=== PATIENT | female | born 1990 | race Caucasian/White ===

== ENCOUNTER 2024-11-04 08:02 | Outpatient (REF) | payer OTHER, SELFPAY ==
[2024-11-04 11:45] LABS: Hematocrit 39.6 % (37.0-47.0); Hemoglobin 12.8 g/dl (12.0-16.0); Mean Corpuscular HGB Conc 32.3 g/dl (31.0-35.0); Mean Corpuscular Hemoglobin 27.2 pg (27.0-33.0); Mean Corpuscular Volume 84.3 fL (80.0-98.0); NRBC Abs Auto 0.000 X10*3/uL (0.0-0.012); NRBC Pct Auto 0.0 /100WBC (0.0-0.2); Platelet Count 221 X10*3/uL (160-400); Red Blood Count 4.70 X10*6/uL (4.20-5.50); White Blood Count 5.5 X10*3/uL (4.8-10.8)
[2024-11-04 12:08] LABS: Alanine Aminotransferase 11 U/L (0-31); Albumin Level 4.3 g/dL (3.5-5.0); Alkaline Phosphatase 45 U/L (39-117); Amylase 88 U/L (28-100); Anion Gap 10 (12-20); Aspartate Amino Transferase 17 U/L (5-31); Blood Urea Nitrogen 15 mg/dL (9-16); Calcium 9.2 mg/dL (8.4-10.2); Carbon Dioxide 26 mmol/L (22-29); Chloride 109 mmol/L (96-108); Cholesterol 170 mg/dL (<200); Estimated Glomerular Filt Rate > 60; HDL Cholesterol 67 mg/dL (>40); Lipase 21 U/L (8-78); Potassium 3.9 mmol/L (3.3-5.1); Sodium 141 mmol/L (135-145); Total Protein 6.9 g/dL (6.5-8.0); Triglycerides 49 mg/dL (<150)
[2024-11-04 12:39] LABS: Folate 9.2 ng/mL (> or = 4.0); Vitamin B12 685 pg/mL (200-900)
== END 2024-11-04 08:03 | disposition home or self-care (01) ==
LOC: HO.WFDLDS 08:02
PROVIDERS: PCP Nurse Practitioner Family; Visit Provider Nurse Practitioner Family
DX: Z00.00 Encounter for general adult medical examination without abnormal findings (principal); R10.11 Right upper quadrant pain; Z12.83 Encounter for screening for malignant neoplasm of skin; Z28.21 Immunization not carried out because of patient refusal; Z86.79 Personal history of other diseases of the circulatory system; Z87.59 Personal history of other complications of pregnancy, childbirth and the puerperium; Z86.32 Personal history of gestational diabetes; Z83.3 Family history of diabetes mellitus
CPT/HCPCS: 36415; 80053; 80061; 82043; 82150; 82248; 82306; 82570; 82607; 82746; 83036; 83690; 84443; 85027; 96127

== ENCOUNTER 2024-11-04 08:02 | Outpatient (AMB) | payer OTHER, SELFPAY ==
--- NOTE | 2024-11-04 08:05 | A.OFFPC_ITS ---
Vital Signs 11/04/24 08:11 Height 5 ft 2 in Weight 128 lb BMI 23.4 BP 98/66 Blood Pressure Location Lt brachial Position Sitting Respiration 12 Pulse 69 Pulse Source Pulse Oximeter Temp 97.2 F Temp Source Oral Pulse Oximetry (%) 98 Oxygen Delivery Method Room Air Intake Visit Reasons: Dermatology referral Intake Note: New patient to establish care and patient requesting dermatology referral. Patient needs lab work. 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 Allergies No Known Allergies Allergy (Verified 11/04/24 08:14) Medication List - Last Reconciled 11/04/24 [facility] No Known Home Meds Tobacco use date assessed: 11/04/24 Dental Screening Dental Screen Date: 11/04/24 Did you have a dental visit in the last 12 months?: Yes Did you have a dental problem in the last 6 months where you did not have access to dental care?: No Was dental information given to patient?: Patient has dentist HPI HPI Comments History of Present Illness Details 34 y/o F with R breast cyst, seasonal al lergies, fhx DM (dad), Social: , 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 Has 2 daughters (2019, 2021). Surgery: Multiple bx R breast - reports benign. Appy. [place] teeth. Fhx: No fhx breast ca; Dad with DM s/p whipple; Mom alive and well. Sister alive and well. Kids alive and well. 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 Worse in RUQ. - Present for months, accompanied by let hargy and reduced appetite. Right Breast Cyst: - Right breast cyst with past biopsies, change in size, no current malignancy. - Managed by ObGyn Moles with Halos: - Moles with halos, no history of skin c ancer, family history of mole removals. - would like referral to saul haddad History of Appendectomy: - Appendectomy performed 10-15 years ago due to abdominal pain. Seasonal Allergies: - Mild seasonal allergies, unimposing, m anaged without medication. Gestational Diabetes in Prior : - Occurred during first , resol sundeep . Pre-eclampsia in Prior : - Manifested after second , res olved . Family History of Diabetes: - Father insulin-dependent post-whipple procedure for pancreatic cyst (nonmalignant) Health Maintenance - Last Tdap vaccination during 2021 preg topher. - Pap smear performed in 2022, results n ormal - Patient declines flu shot. - History of colonoscopy approximately 1 0-15 years ago with normal results. Review of Systems - Gastrointestinal: Reports postprandial pain, denies blood in stool. - General: Reports lethargy, decreased a ppetite. - Respiratory/ENT: Denies symptoms. - Cardiovascular: Denies chest pain or p alpitations. - Dermatological: Reports moles with abbi os. - Neurological/Psychiatric: Denies sympt oms. - Allergic/Immunologic: Denies known mark g allergies, reports mild seasonal allergies. Physical Exam General: Well developed, well nourished, in no acute distress. Appears stated age. Head: Normocephalic, atraumatic. Eyes: Pupils are equal, round and reactive to light and accommodation. Conjunctivae are clear. Scleras nonicteric bilat. Vision grossly normal. Ears: TMs clear AU, EACS WNL Nose: Patent, without discharge. Neck: No carotid bruit bilat. Supple, no adenopathy or thyromegaly. Breast: Edu on SBE Lungs: Clear to auscultation bilaterally. No rales, rhonchi or wheeze noted. Good air flow in all kyle. Heart: Regular rate and rhythm. No murmurs, click, rubs or gallops are noted. Abdomen: Bowel sounds present in all quadrants. The abdomen is soft, nontender, with no masses or organomegaly noted. No hernias are noted. : Deferred. 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 Pulses: Peripheral pulses are equal and palpable bilaterally. Extremities: No clubbing, cyanosis nor edema is noted. Neurologic: Gait and station normal. Cranial Nerves 2-12 intact. Motor strength grossly symmetrical and intact. No sensory loss. Balance normal. Skin: No rashes, ulcers, or lesions noted. Turgor is good. Skin color is good. Hair and nails are without abnormalities. Noted multiple moles on trunk Psych: Normal eye contact, affect and mood appropriate, and normal interactions. Patient is alert and appropriate to context. Results Pending Discussion Notes I discussed with the patient the possibility of cholecystitis due to her symptoms of upper abdominal discomfort and postprandial pain. We reviewed the necessity of laboratory tests and imaging studies to further evaluate her gallbladder function and rule out stones or disease. I explained the possible need for an ultrasound if initial lab results do not sufficiently explain her symptoms. I advised waiting for a week for referral processing to dermatology for her moles, and she is to follow up with scheduling for evaluation. We talked about routine screenings, self-care, and the importance of annual follow-ups for all chronic and health maintenance issues. Patient was given time to ask questions. All questions were answered to their satisfaction. Assessment and Plan 1. Suspected Cholecystitis - Lab work for hepatic/pancreatic functi on; ultrasound consideration. 2. Right Breast Cyst - Continued monitoring by ObGyn; no inte rvention due to favorable recent evaluation. 3. Moles - Dermatology referral for evaluation. 4. History of Appendectomy - No current interventions required. 5. Seasonal Allergies - No interventions necessary; mild sympt oms. 6. Gestational Diabetes - History resolved, no current managemen t needed. 7. Pre-eclampsia - Managed post-, resolved. 8. Family History of Diabetes - Discussed monitoring for symptoms. 9. Family History of Pancreatic Cysts - Pancreatic lab evaluations planned. Patient Instructions - Schedule an ultrasound in consultation with the office if lab results indicate. - Monitor dietary intake and avoid known triggers. - Follow up for them follow-up lab resul ts on the patient portal. - Check in with dermatology for evaluati on of moles. - Maintain scheduled annual physicals to avoid losing patient status. - RTO 1 year CPE sooner as needed. Consent Patient was informed and verbally consented to the use of an ambient scribe for clinic note documentation during this visit. An additional 30 minutes was spent addressing the problem(s) noted at todays visit. This includes time spent before the visit reviewing the chart, time spent during the visit, and time spent after the visit on documentation reviewing laboratory results, diagnostic imaging, medications, performing a medically necessary evaluation, counseling on diagnoses, care coordination, ordering appropriate tests, ordering appropriate medications, review of tests performed by other providers, reporting test results with the patient, communication with other healthcare providers. [facility] Medical History (Updated 11/04/24 @ 08:38 by Otilia Ann, [facility]) Anxiety Hx of mammogram (~10/2024) Surgical History (Updated 11/04/24 @ 08:15 by Rosalba Alanis MA) History of appendectomy Hx of colonoscopy (~2014) Family History (Updated 11/04/24 @ 08:16 by Rosalba Alanis MA) Father HTN (hypertension) High cholesterol Diabetes Substance abuse Maternal Grandmother Cancer Social History (Updated 11/04/24 @ 08:06 by Rosalba Alanis MA) Household Members: Spouse and Children Both parents involved: No Caregiver staying overnight: No Housing: House Are you a primary resident care manager rn to a significant other at home: Yes Do you presently have visiting nurse or other home services: No 75 years or older and lives alone: No Alcohol intake: current Alcohol intake frequency: a few times a month Patient Tobacco Use Status: Never used Tobacco e-Cigarette/Vaping Use: Never Used Second Hand Smoke Exposure: No service: No Current occupational status: employed 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 1. Little interest or pleasure in doing things: not at all 2. Feeling down, depressed, or hopeless: not at all 3. Trouble falling or staying asleep, or sleeping too much: not at all 4. Feeling tired or having little energy: several days 5. Poor appetite or overeating: several days 6. Feeling bad about yourself - or that you are a failure or have let yourself or your family down: not at all 7. Trouble concentrating on things, such as reading the newspaper or watching television: not at all 8. Moving or speaking so slowly that other people could have noticed. Or the opposite - being so fidgety or restless that you have been moving around a lot more than usual: not at all 9. Thoughts that you would be better off or of hurting yourself in some way: not at all Total score: 2 Depression Screening Interpretation: Negative Depression Screening Done: Yes 53793 - PHQ-9 Billing: Yes Source: Developed by Drs. Ramon Kinsey, Asha Anderson, Steve Reddy and colleagues, with an educational raad from [employer]. Thrive Questionnaire Date Thrive assessed: 11/04/24 I am a: Patient What is your living situation today?: I have a steady place to live Within the past 12 months, did the food you bought not last and you didn't have the money to get more?: Never true Within the past 12 months, did you worry whether your food would run out before you got money to buy more?: Never true Do you have trouble paying for medicines?: No Do you have trouble getting transportation to medical appointments?: No Do you have trouble paying your heating and electricity bill?: No Do you have trouble taking care of your child, family member or friend?: No Do you have trouble with day-to-day activities such as bathing, preparing meals, shopping, managing finances, etc.?: No Are you currently unemployed and looking for a job?: No Are you interested in more education?: No Please select the resources that you would like help with: None Currently or been in a relationship where the following occur: No concerns reported THRIVE Score: 0 AUDIT C Alcohol Use Questionnaire (AUDIT-C) 1. How often do you have a drink containing alcohol?: 2-4 times a month 2. How many drinks containing alcohol do you have on a typical day when you are drinking?: 1 or 2 3. How often do you have six or more drinks on one occasion?: Never Total Score: 2 Score Reviewed/Action Taken: Yes RENU-7 AMB Questionnaire RENU-7 Date RENU - 7 assessed: 11/04/24 Feeling nervous, anxious, or on edge: 1 = Several days Not being able to stop or control worryin = Several days Worrying too much about different things: 1 = Several days Trouble relaxin = Several days Being so restless that it is hard to sit still: 0 = Not at all Becoming easily annoyed or irritable: 0 = Not at all Feeling afraid as if something awful might happen: 0 = Not at all Total RENU-7 score (0-4 normal; 5-9 mild; 10-14 moderate; 15-21 severe): 4 Source: Developed by Drs. Ramon Kinsey, Asha Anderson, Steve Reddy and colleagues, with an educational raad from [employer]. RENU-7 Assessment Billing RENU-7 Assessment Tool: RENU-7 Assessment 67214 Physical exam (Primary Care) Vital Signs: Last Vital Signs Temp 97.2 F 11/04/24 08:11 Pulse 69 11/04/24 08:11 Resp 12 11/04/24 08:11 BP 98/66 11/04/24 08:11 Pulse Ox 98 11/04/24 08:11 Oxygen Delivery Method Room Air 11/04/24 08:11 BMI result Body Mass Index 23.4 Tobacco/Smoking Status: Tobacco use Status Tobacco use date assessed 11/04/24 11/04/24 08:12 Patient Tobacco Use Status Never used Tobacco 11/04/24 08:12 e-Cigarette/Vaping Use Never Used 11/04/24 08:12 PHQ-9: PHQ-9 Score PHQ-9: Total score 2 11/04/24 08:12 Depression Screening Interpretation: Negative Thrive Assessment: Date of Thrive Assessment Date Thrive assessed 11/04/24 11/04/24 08:12 Currently or been in a relationship where the following occur: No concerns reported Coding Level of Care Code New Pt Level 3 (85011) New Pt Prev Care 18-39yr(78944 Diagnoses Encounter to establish care with new provider Z76.89 Skin cancer screening Z12.83 Laboratory exam ordered as part of routine general medical examination Z00.00 RUQ abdominal pain R10.11 History of pre-eclampsia Z86.79; Z87.59 History of gestational diabetes Z86.32 Family history of diabetes mellitus (DM) Z83.3 Influenza vaccination declined Z28.21 Encounter for general adult medical examination without abnormal findings Z00.00 Additional Codes RENU-7 Assessment Billing - RENU-7 Assessment Tool: RENU-7 Assessment 66058 ([id number]) PHQ-9 - 55617 - PHQ-9 Billing: Yes ([id number]) Assessment & Plan Assessment & Plan (1) Encounter to establish care with new provider: Code(s): Z76.89 - Persons encountering health services in other specified circumstances (2) Skin cancer screening: Code(s): Z12.83 - Encounter for screening for malignant neoplasm of skin Category: Medical (3) Laboratory exam ordered as part of routine general medical examination: Code(s): Z00.00 - Encounter for general adult medical examination without abnormal findings Category: Medical (4) RUQ abdominal pain: Code(s): R10.11 - Right upper quadrant pain Category: Medical (5) History of pre-eclampsia: Code(s): Z86.79 - Personal history of other diseases of the circulatory system; Z87.59 - Personal history of other complications of , childbirth and the puerperium Category: Medical (6) History of gestational diabetes: Code(s): Z86.32 - Personal history of gestational diabetes Category: Medical (7) Family history of diabetes mellitus (DM): Code(s): Z83.3 - Family history of diabetes mellitus Category: Medical (8) Influenza vaccination declined: Code(s): Z28.21 - Immunization not carried out because of patient refusal Category: Medical (9) Encounter for general adult medical examination without abnormal findings: Onset Date: ~11/04/24 Code(s): Z00.00 - Encounter for general adult medical examination without abnormal findings Category: Medical Plan . Orders: Orders Hemoglobin A1c Today R10.11 - Right upper quadrant pain, Z00.00 - Encounter for general adult medical examination without abnormal findings Microalbumin, Random (w Creat) Today R10.11 - Right upper quadrant pain, Z00.00 - Encounter for general adult medical examination without abnormal findings Vitamin B12 and Folate Today R10.11 - Right upper quadrant pain, Z00.00 - Encounter for general adult medical examination without abnormal findings Vitamin D 25-OH Total Today R10.11 - Right upper quadrant pain, Z00.00 - Encounter for general adult medical examination without abnormal findings Complete Blood Count no Diff Today R10.11 - Right upper quadrant pain, Z00.00 - Encounter for general adult medical examination without abnormal findings Comprehensive Met. Panel Today R10.11 - Right upper quadrant pain, Z00.00 - Encounter for general adult medical examination without abnormal findings Lipid Panel Today R10.11 - Right upper quadrant pain, Z00.00 - Encounter for general adult medical examination without abnormal findings TSH reflex Free T4 Today R10.11 - Right upper quadrant pain, Z00.00 - Encounter for general adult medical examination without abnormal findings Bilirubin Direct Today R10.11 - Right upper quadrant pain, Z00.00 - Encounter for general adult medical examination without abnormal findings Bilirubin Total Today R10.11 - Right upper quadrant pain, Z00.00 - Encounter for general adult medical examination without abnormal findings Amylase Today R10.11 - Right upper quadrant pain, Z83.3 - Family history of diabetes mellitus, Z86.32 - Personal history of gestational diabetes Lipase Today R10.11 - Right upper quadrant pain, Z83.3 - Family history of diabetes mellitus, Z86.32 - Personal history of gestational diabetes Referrals Dermatology Referral Z12.83 - Encounter for screening for malignant neoplasm of skin Patient Instructions: Walk-In Care (Urgent Care): We Make it Easy Walk-in for urgent medical issues such as: ? Seasonal Allergies ? Insect Bites ? Cough ? Diarrhea ? Acute Asthma Attacks ? Back, Knee or Joint Pain ? Ear Infection ? Fever without a Rash ? Headaches ? Nausea ? [place] [facility], Rash or Skin Irritation ? Sore Throat ? Sports Physicals ? Vomiting Most insurances are accepted. Patients do not need to be part of the [facility] to seek care at the walk-in clinic. Locations [address] [place] [address] Open Sunday through Sunday 8am-5pm *Hours may vary due to staffing availability. To confirm Walk-In Care hours please call. [facility] , [place] [address] ? [phone] [facility] Walk-In Care in [place] provides services to ages 18 and over. Open Sunday-Sunday: 7 a.m. to 5 p.m. and Sunday: 9 a.m. to 3 p.m.* *Hours may vary due to staffing availability. To confirm Walk-In Care hours in [place], please call [phone]. [address] [place] [address] ? [phone] [facility] Walk-In Care in [place] provides services to ages 12 and over. Open Sunday-Sunday: 8 a.m. to 5 p.m. Hours may vary due to staffing availability. To confirm Walk-In Care hours in [place], please call [phone]. LABORATORY SERVICES: [facility] ? Primary Location [address] [place] [address] Sunday through Sunday 6:00 AM ? 5:00 PM Sunday 7:00 AM ? 11:00 AM* [phone] The [facility] is centrally located near the front entrance of the Medical Center for easy outpatient access. Convenient parking is provided for outpatients. *Hours may vary due to staffing availability. To confirm Laboratory hours for any location, please call [phone]. Offsite Location For your convenience, we offer offsite laboratory draw stations at the following locations: [address] [facility], [facility] [place] ? [facility] [address] [facility] [address], [address], [place] Sunday through Sunday 7:30 AM ? 1:00 PM* [phone] *Hours may vary due to staffing availability. To confirm Laboratory hours for any location, please call [phone]. [place] ? [facility] [address] [facility], [place] Sunday through Sunday 6:00 AM ? 3:30 PM* Sunday 6:30 AM ? 3 PM* [phone] *Hours may vary due to staffing availability. To confirm Laboratory hours for any location, please call [phone] [place] [address] Sunday through Sunday 7:30 AM ? 4:00 PM* [phone] *Hours may vary due to staffing availability. To confirm Laboratory hours for any location, please call [phone] [place] [address] Sunday through 9:00 AM ? 4:00 PM* *Hours may vary due to staffing availability. To confirm Laboratory hours for any location, please call [phone]. Appointments are not necessary. Walk-ins are welcome. Like all the departments throughout the [facility], our Lab undergoes frequent reviews to ensure the quality and accuracy of test results, and our staff takes special pride in its status as a nationally accredited facility. Patient Portal: [facility] ONE PATIENT. ONE RECORD. BETTER CARE. [facility] has a fully integrated, cutting- edge mobile electronic health information system that has revolutionized the way we care for our patients and manage our organization. This system improves communication and coordination enabling us to provide safe, higher-quality care, and an overall positive experience for staff and patients. Our first priority, as always, is to deliver the highest quality care possible. The system is running in the background supporting that priority. This portal is for all [facility] services and practices. If you are experiencing any technical difficulties with enrolling or logging into the Patient Portal please complete the [facility] Patient Portal Technical Support Form. [facility] now offers a new secure on-line interactive tool for patients to review their health information ? ?Patient Portal. This interactive web portal will enable patients and their families to take an active role in their care by providing easy, secure access to their health information via the internet. The Patient Portal provides patients with instant access to their health information, including laboratory results, medications, allergies, demographic information, visit history, and more. In addition to managing their own care, parents and health care proxies with authorized consent will appreciate the ability to access the records of those individuals for whom they provide care. Please note: if you wish to gain access (Proxy) to another patient?s portal, you will be required to come to the Medical Records Department in person at [facility]. Both the patient giving proxy access and the proxy will need to provide photo identification and complete the appropriate authorization. The Patient Portal also allows track their appointments online. The [facility] Patient Portal also saves patients time by allowing them to submit updates to their demographic and contact information prior to their visits. Portal email notifications will also alert patients to any new activity on their portal, such as test results and new appointments. In order to initially enroll in the [facility] Patient Portal, you will need to enter some required information including the following: * your [facility] Medical Record number * your personal home email address * name * date of Please note: In order to enroll in the [facility] Patient Portal, we need to have your email address on file in your electronic medical record. ?The email address needs to be specific for one person (yourself) in order for your Portal enrollment to be successful. ?You can update your email address in person with our Registration staff when you are registering for a hospital visit. ?Otherwise, you will need to come to the Health Information Management (Medical Records) Department at [facility]. ?We are open from Sunday ? Sunday from 7:30 a.m. ? 4:30 p.m. ?You will be required to present a photo id. Once you have successfully enrolled in the Patient Portal, you will receive a one-time user id and password for the Portal, sent to your email address. ?This will allow you to log into the Patient Portal within 99 hrs and reset your own logon id and password, and define personal security questions. ?Once your permanent login and password have been set, you can log into the [facility] Patient Portal at any time via the blue button above or from the Portal Logon button on any page of the [facility] website. [facility] encourage all of our patients to enroll in Patient Portal as it presents a valuable opportunity for patients and their families to actively participate in their care and stay healthy Welcome to [facility]. ?We look forward to working with you. Health screenings for women You should visit your health care provider from time to time, even if you are healthy. The purpose of these visits is to: Screen for medical issues Assess your risk for future medical problems Encourage a healthy lifestyle Update vaccinations and other preventive care services Help you get to know your provider in case of an illness Information Even if you feel fine, you should still see your provider for regular checkups. These visits can help you avoid problems in the future. For example, the only way to find out if you have high blood pressure is to have it checked regularly. High blood sugar and high cholesterol levels also may not have any symptoms in the early stages. A simple blood test can check for these conditions. There are specific times when you should see your provider or receive specific health screenings. The [place] Preventive Services Task Force publishes a list of recommended screenings. Below are screening guidelines for women ages 18 to 39. BLOOD PRESSURE SCREENING Your blood pressure should be checked at least once every 3 to 5 years if: Your blood pressure is in the normal range (top number less than 120 mm Hg and bottom number less than 80 mm Hg) You don't have risk factors for high blood pressure Ask your provider if you need your blood pressure checked more often if: The top number is 120 to 129 mm Hg or the bottom number is 70 to 79 mm Hg You have diabetes, heart disease, kidney problems, are overweight, or have certain other health conditions You have a first-degree relative with high blood pressure You are Black You had high blood pressure during a If the top number is 130 mm Hg or greater or the bottom number is 80 mm Hg or greater, this is considered stage 1 hypertension. Schedule an appointment with your provider to learn how you can reduce your blood pressure. Watch for blood pressure screenings in your area. Ask your provider if you can stop in to have your blood pressure checked. BREAST CANCER SCREENING Experts do not agree about the benefits of breast self-exams in finding breast cancer or saving lives. Talk to your provider about what is best for you. A screening mammogram is not recommended for most women under age 40. Your provider may discuss and recommend mammograms, MRI scans, or ultrasounds if you have an increased risk for breast cancer, such as: A mother or sister who had breast cancer at a young age (most often starting sc reening earlier than the age the close relative was diagnosed) You carry a high-risk genetic marker CERVICAL CANCER SCREENING Cervical cancer screening should start at age 21 years unless your provider advises otherwise. After the first test: Women ages 21 through 29 should have a Pap test every 3 years. Exoprts do not agree on whether HPV testing is recommended for this age group. Women ages 30 through 65 should be screened with either a Pap test every 3 years or the HPV test every 5 years or both tests every 5 years (called cotesting ). Women who have been treated for precancer (cervical dysplasia) should continue to have Pap tests for 20 years after treatment or until age 65, whichever is longer. If you have had your uterus and cervix removed (total hysterectomy), and you have not been diagnosed with cervical cancer or precancer (high grade cervical neoplasia), you do not need cervical cancer screening. CHOLESTEROL SCREENING Cholesterol screening should begin at: Age 45 for women with no known risk factors for coronary heart disease Age 20 for women with known risk factors for coronary heart disease Repeat cholesterol screening should take place: Every 5 years for women with normal cholesterol levels More often if changes occur in lifestyle (including weight gain and diet) More often if you have diabetes, heart disease, kidney problems, or certain other conditions DIABETES SCREENING You should be screened for diabetes starting at age 35 and then repeated every 3 years if you have no risk factors for diabetes. Screening may need to start earlier and be repeated more often if you have other risk factors for diabetes, such as: You have a first degree relative with diabetes. You are overweight or have obesity. You have high blood pressure, prediabetes, or a history of heart disease. Screening for diabetes should be done if you are planning to become and you are overweight and have other risk factors such as high blood pressure. DENTAL EXAM Go to the dentist once or twice every year for an exam and cleaning. Your dentist will evaluate if you need more frequent visits. EYE EXAM Have an eye exam every 5 to 10 years before age 40. If you have vision problems, have an eye exam every 2 years or more often if recommended by your provider. You should have an eye exam that includes an examination of your retina (back of your eye) at least every year if you have diabetes. IMMUNIZATIONS Commonly needed vaccines include: Flu shot: get one every year. COVID-19 vaccine: ask your provider what is best for you. Tetanus-diphtheria and acellular pertussis (Tdap) vaccine: have one at or after age 19 as one of your tetanus-diphtheria vaccines if you did not receive it as an adolescent. Tetanus-diphtheria: have a booster (or Tdap) every 10 years. Varicella vaccine: receive 2 doses if you never had chickenpox or the varicella vaccine. Hepatitis B vaccine: receive 2, 3, or 4 doses, depending on your exact circumstances. Measles, mumps, and rubella (MMR) vaccine: receive 1 to 2 doses if you are not already immune to MMR. Your provider can tell you if you are immune. Ask your provider about the human papillomavirus (HPV) vaccine if: You have not received the HPV vaccine in the past You have not completed the full vaccine series (you should catch up on this shot) Ask your provider if you should receive other immunizations if you have certain health problems that increase your risk for some diseases such as pneumonia. INFECTIOUS DISEASE SCREENING Women who are sexually active should be screened for chlamydia and gonorrhea up until age 25. Women 25 years and older should be screened for chlamydia and gonorrhea if at high risk. Screening for hepatitis C: All adults ages 18 to 79 should get a one-time test for hepatitis C. people should be screened at every . Screening for human immunodeficiency virus (HIV): All people ages 15 to 65 should get a one-time test for HIV. Depending on your lifestyle and medical history, you may also need to be screened for infections such as syphilis and HIV, as well as other infections. PHYSICAL EXAM All adults should visit their provider from time to time, even if they are healthy. The purpose of these visits is to: Screen for disease Assess your risk of future medical problems Encourage a healthy lifestyle Update your vaccinations and other preventive care services Maintain a relationship with a provider in case of an illness Your height, weight, and BMI should be checked at every exam. During your exam, your provider may ask you about: Depression and anxiety Diet and exercise Alcohol and tobacco use Safety issues, such as using seat belts, smoke detectors, and intimate partner violence Your medicines and risk for interactions SKIN SELF-EXAM Your provider may check your skin for signs of skin cancer, especially if you're at high risk, such as if you: Have had skin cancer before Have close relatives with skin cancer Have a weakened immune system OTHER SCREENING Talk with your provider about colon cancer screening if you have a strong family history of colon cancer or polyps, or if you have had inflammatory bowel disease or polyps yourself. Routine bone density screening of women under 40 is not recommended.
[2024-11-04 08:11] VITALS: BP 98/66; PULSE 69; RESP 12; TEMP 36.2; O2SAT 98; BMI 23.4
--- OUTSIDE RECORDS SUMMARY | 2024-11-04 08:14 | XMS_ITS | Clinical Summary ---
Author Organization [facility] Address [address] [place] [address] Care Team Providers Care Mine Inspector Federal Name Role Phone Radha Babb STONEWORKING BELT SANDER Primary Care Provider [phone] Allergies No known active allergies Medications * This document contains information received from the source organization and may not represent a complete record from that organization. No known medications Active Problems No known active problems Immunizations Immunization Administration Dates Next Due PPD/TST (Tuberculin Skin Test) 07/15/2020,2014 Social History Tobacco Use Types Packs/Day Years Used Date Smoking Tobacco: Never Assessed Comments No Sex and Gender Information Value Date Recorded Sex Assigned at Not on file Legal Sex Female 3:41 PM EST Gender Identity Not on file Sexual Orientation Not on file Last Filed Vital Signs Vital Sign Reading Time Taken Comments Blood Pressure 102/70 07/15/2020 10:48 AM EDT Pulse 76 07/15/2020 10:48 AM EDT Temperature 36.3 C (97.4 F) 01/13/2015 12:30 PM EST Respiratory Rate 18 01/13/2015 12:30 PM EST Oxygen Saturation - - Inhaled Oxygen Concentration - - Weight 52.2 kg (115 lb) 07/15/2020 10:48 AM EDT Height 161.3 cm (5' 3.5 ) 07/15/2020 10:48 AM ED T Body Mass Index 20.05 07/15/2020 10:48 AM EDT Plan of Treatment Health Maintenance Due Date Last Done Comments Hepatitis C Screening 1990 Pap Smear 2006 DTaP/Tdap/Td (1 - Tdap) 2008 Hep B (1 of 3 - 19+ 3-dose series) 2009 COVID-19 Vaccine (2023-2 5 season) 2024 Influenza (#1) 2024 Zoster (Shingrix) (1 of 2) 2040 HPV Vaccine (No Doses Required) Completed Hep A Aged Out No longer eligi ble based on patient's age to complete this topic Hib Aged Out No longer eligi ble based on patient's age to complete this topic Meningococcal ACWY Aged Out No longer eligible based on patient's age to complete this topic Pneumococcal Aged Out No longer eligi ble based on patient's age to complete this topic Insurance * Guarantor: TESSIE ALLISON Account Type Relation to Patient Date of Phone Billing Address Personal/Family [address] [place] [address] BCBS FEE FOR SERVICE PPO Care Teams Mine Inspector Federal Relationship Specialty Start Date End Date Radha Babb NP [address] [place] [address] PCP - General Family Medicine 01/13/15
== END 2024-11-04 08:36 | disposition home or self-care (01) ==
LOC: HO.HMCFM 08:03
PROVIDERS: PCP Nurse Practitioner Family; Visit Provider Nurse Practitioner Family
DX: Z00.00 Encounter for general adult medical examination without abnormal findings (principal); R10.11 Right upper quadrant pain; Z12.83 Encounter for screening for malignant neoplasm of skin; Z86.79 Personal history of other diseases of the circulatory system; Z87.59 Personal history of other complications of pregnancy, childbirth and the puerperium; Z86.32 Personal history of gestational diabetes; Z83.3 Family history of diabetes mellitus; Z28.21 Immunization not carried out because of patient refusal

== ENCOUNTER 2024-12-31 08:51 | Outpatient (AMB) | payer OTHER, SELFPAY ==
--- NOTE | 2024-12-31 08:52 | A.OFFPC_ITS ---
Vital Signs 12/31/24 08:56 Height 5 ft 2 in Weight 126 lb 6 oz BMI 23.1 BP 102/68 Blood Pressure Location Lt brachial Position Sitting Respiration 12 Pulse 62 Pulse Source Pulse Oximeter Temp 97.3 F Temp Source Oral Pulse Oximetry (%) 100 Oxygen Delivery Method Room Air Intake Visit Reasons: sick visit Intake Note: Patient c/o persistent abd px x a few months. 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 Has 2 daughters (2019, 2021). Surgery: Multiple bx R breast - reports benign. Appy. [place] teeth. Fhx: No fhx breast ca; Dad with DM s/p whipple; Mom alive and well. Sister alive and well. Kids alive and well. Health Maintenance: Flu Declined PAP 2022 Tdap 2021 Colon 2014, for abd pain, normal Mammo 10/2024 normal other than breast cyst Specialists: Derm - Lenzy Air Launch Weapons Technician History of Present Illness The patient is a 34-year-old individual presenting for evaluation of ongoing abdominal pain. Epigastric pain: - The patient reports ongoing symptoms o f abdominal pain, which is the same issue previously experienced. - The pain is located under the ribs and has migrated; it was initially on one side, then exclusively on the opposite side for about a month, and has recently returned to the original location. - Symptoms are characteristically postpr andial, described as significant pressure and discomfort that occurs after eating. - The patient feels uncomfortable and do es not want to eat, which may have contributed to some weight loss. - Prior laboratory results were normal, including tests for the pancreas, bilirubin, and liver function. - A stool test for H. pylori has not bee n previously performed. Past Medical History - No significant past medical history wa s discussed. Review of Systems - Constitutional: Reports some weight lo ss. - Gastrointestinal: Reports postprandial epigastric pain and pressure, which varies between the right and left upper abdomen, and makes eating unenjoyable. - Respiratory: Denies cough. Physical Exam General: Well developed, well nourished, in no acute distress. Appears stated age. Head: Normocephalic, atraumatic. Eyes: Pupils are equal, round and reactive to light and accommodation. Conjunctivae are clear. Scleras nonicteric. Lungs: Speaking in full sentences Abdomen: Bowel sounds present in all quadrants. The abdomen is soft with no masses or organomegaly noted. Tenderness noted in the epigastric region upon palpation, + murphys sign, No hernias are noted. Skin: PWD Psych: Mood and affect appropriate Diagnostic results Abd US pending Results - Labs: Previous labs were normal, inclu ding pancreatic enzymes, bilirubin, and liver function tests. Medical Decision Making The patient is a 34-year-old individual presenting with recurrent, postprandial upper abdominal pain that shifts from side to side. Previous lab work was normal, including pancreatic and liver function tests, which makes an obstructive stone less likely. However, the differential remains broad and includes cholelithiasis without obstruction, or biliary dyskinesia (a lazy gallbladder ). H. pylori infection is also a consideration given the postprandial nature of the discomfort. Physical exam reveals tenderness in the epigastric region and right upper quadrant, further increasing suspicion for gallbladder pathology. The initial diagnostic step is a complete abdominal ultrasound to visualize the gallbladder for stones and evaluate adjacent organs. A HIDA scan to assess gallbladder function would only be considered after an ultrasound, to mitigate the risk of dislodging an occult stone. Concurrently, a stool antigen test for H. pylori will be ordered as it is the most accurate screening method. The ultrasound is being ordered urgently to expedite scheduling. Plan 1. Epigastric Pain - The plan is to proceed with a complete abdominal ultrasound to evaluate for gallstones and assess the liver, kidneys, and gallbladder. - The ultrasound will be ordered with an urgent priority to facilitate quicker scheduling. - A HIDA scan to evaluate gallbladder fu nction may be considered following the ultrasound if results are non-diagnostic for cholelithiasis. - An order for a stool test for H. pylor i will be placed to rule out a bacterial infection in the stomach. - The patient will be provided with the collection kit and instructions for the H. pylori test. - Will message the patient with the H. p ylori results once available. Patient Instructions - An order for a full belly ultrasound h as been placed. You can ask the front window cashier staff to help schedule this appointment, or the radiology department will call you directly. - Before leaving, please stop at the lab to see Brianne, the brick and blocker aid labor, to berry picker a stool collection kit for H. pylori testing. - You can return the stool sample at you r convenience. - You will receive a message with the re sults of the H. pylori test. - I will coordinate f/u of US once resul ts are available. Consent The rationale for proceeding with an ultrasound prior to considering a HIDA scan was discussed, noting the risk of inducing an obstruction if a stone is present and a HIDA scan is performed first. Patient was informed and verbally consented to the use of an ambient scribe for clinic note documentation during this visit. [facility] Medical History (Updated 12/31/24 @ 09:31 by Otilia Ann [facility]) Anxiety Hx of mammogram (~10/2024) Surgical History (Updated 11/04/24 @ 08:15 by Rosalba Alanis MA) History of appendectomy Hx of colonoscopy (~2014) Family History (Updated 11/04/24 @ 08:16 by Rosalba Alanis MA) Father HTN (hypertension) High cholesterol Diabetes Substance abuse Maternal Grandmother Cancer Social History (Updated 11/04/24 @ 08:13 by Rosalba Alanis MA) Household Members: Spouse and Children Both parents involved: No Caregiver staying overnight: No Housing: House Are you a primary child care sitter to a significant other at home: Yes Do you presently have visiting nurse or other home services: No 75 years or older and lives alone: No Alcohol intake: current Alcohol intake frequency: a few times a month Patient Tobacco Use Status: Never used Tobacco e-Cigarette/Vaping Use: Never Used Second Hand Smoke Exposure: No service: No Current occupational status: employed 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 Current occupational exposures/hazards: No Cognitive needs: No Hearing needs: No Vision needs: Yes (wear contacts) Questionnaire Thrive Questionnaire Date Thrive assessed: 10/29/24 I am a: Patient What is your living situation today?: I have a steady place to live Within the past 12 months, did the food you bought not last and you didn't have the money to get more?: Never true Within the past 12 months, did you worry whether your food would run out before you got money to buy more?: Never true Do you have trouble paying for medicines?: No Do you have trouble getting transportation to medical appointments?: No Do you have trouble paying your heating and electricity bill?: No Do you have trouble taking care of your child, family member or friend?: No Do you have trouble with day-to-day activities such as bathing, preparing meals, shopping, managing finances, etc.?: No Are you currently unemployed and looking for a job?: No Are you interested in more education?: No Please select the resources that you would like help with: None Currently or been in a relationship where the following occur: No concerns reported THRIVE Score: 0 RENU-7 AMB Questionnaire RENU-7 Date RENU - 7 assessed: 11/04/24 Source: Developed by Drs. Ramon Kinsey, Asha Anderson, Steve Reddy and colleagues, with an educational raad from [employer]. Physical exam (Primary Care) Vital Signs: Last Vital Signs Temp 97.3 F 12/31/24 08:56 Pulse 62 12/31/24 08:56 Resp 12 12/31/24 08:56 BP 102/68 12/31/24 08:56 Pulse Ox 100 12/31/24 08:56 Oxygen Delivery Method Room Air 12/31/24 08:56 BMI result Body Mass Index 23.1 Tobacco/Smoking Status: Tobacco use Status Tobacco use date assessed 12/31/24 12/31/24 08:54 Patient Tobacco Use Status Never used Tobacco 12/31/24 08:54 e-Cigarette/Vaping Use Never Used 12/31/24 08:54 Thrive Assessment: Date of Thrive Assessment Date Thrive assessed 10/29/24 12/31/24 08:54 Currently or been in a relationship where the following occur: No concerns repor verito Coding Level of Care Code Est Pt Level 3 (10775) Complex visit Add On G2211 Diagnoses RUQ abdominal pain R10.11 Postprandial epigastric pain R10.13 Assessment & Plan Assessment & Plan (1) RUQ abdominal pain: Code(s): R10.11 - Right upper quadrant pain Category: Medical (2) Postprandial epigastric pain: Code(s): R10.13 - Epigastric pain Category: Medical Plan . Orders: Orders US abdomen complete Today R10.11 - Right upper quadrant pain, R10.12 - Left upper quadrant pain, R10.13 - Epigastric pain H pylori Ag Stool Today R10.11 - Right upper quadrant pain
[2024-12-31 08:56] VITALS: BP 102/68; PULSE 62; RESP 12; TEMP 36.3; O2SAT 100; BMI 23.1
--- OUTSIDE RECORDS SUMMARY | 2024-12-31 09:20 | XMS_ITS | Clinical Summary ---
Author Organization [facility] Address [address] [place] [address] Care Team Providers Care Slate Trimmer Name Role Phone Radha Babb LEAD WEB DEVELOPER Primary Care Provider [phone] Allergies No known active allergies Medications * [...] - 19+ 3-dose series) 2009 COVID-19 Vaccine (2024-2 6 season) 2024 Influenza (#1) 2024 Zoster (Shingrix) [...] Date of Phone Billing Address Personal/Family [address] [place] [address] BCBS FEE FOR SERVICE PPO Care Teams Slate Trimmer Relationship Specialty Start Date End Date Radha Babb NP [address] [place] [address] PCP - General Family Medicine 01/13/15
--- OUTSIDE RECORDS SUMMARY | 2024-12-31 09:20 | XMS_ITS | Clinical Summary ---
Author Organization [facility] Address [address] [facility] [place] [address] Care Team Providers Care Commercial Real Estate Associate Name Role Phone Pcp, No Primary Care Provider [phone] Allergies No known active allergies Medications drospirenone, contraceptive, (Slynd) 4 mg (28) tab Take 4 mg by mouth 06/20/2021 Active Active Problems No known active problems Social History Tobacco Use Types Packs/Day Years Used Date Smoking Tobacco: Never Smokeless Tobacco: Never Comments No Sex and Gender Information Value Date Recorded Sex Assigned at Not on file Legal Sex Female 11:59 AM EDT Gender Identity Not on file Sexual Orientation Not on file Last Filed Vital Signs Vital Sign Reading Time Taken Comments Blood Pressure 100/68 03/19/2023 9:05 AM EST Pulse 81 03/19/2023 9:05 AM EST Temperature 36.4 C (97.5 F) 03/19/2023 9:05 AM EST Respiratory Rate 18 03/19/2023 9:05 AM EST Oxygen Saturation 100% 03/19/2023 9:05 AM EST Inhaled Oxygen Concentration - - Weight - - Height - - Body Mass Index - - Plan of Treatment Health Maintenance Due Date Last Done Comments Depression: Screening Annual ly using PHQ-2/9 in Adults 18 yrs or above (or HM Modifier)([facility]) 2008 Hepatitis C Virus Infection in Adolescents and Adults: Screening (or Modifier) ([facility]) 2008 SDOH Screening Reminder: Annually for all adults ([facility]) 2008 Tobacco Smoking Cessation: i n Adults excluding Women: Behavioral and Pharmacotherapy Interventions ([facility]) 2008 Cervical Cancer Screenin-65 yrs of age (or Modifier) 07/07/2011 Cervical Cancer Screening: P ap every 3 yrs pts age 21-65 07/07/2011 Cervical Cancer: Pap Screeni ng with Modifier timing ([facility]) 07/07/2011 Cervical Cancer: hrHPV alone or with cotesting Pap for Pts 30-65yrs screening every 5yrs ([facility]) 07/07/2011 Flu Vaccination: Yearly for ages 18mos through 64 years (or Modifier)([facility]) 09/05/2024 COVID-19 Vaccine Screening: Initial Series and Booster Status ([facility]) ( - 2024- season) 2024 DTaP/Tdap/Td Vaccines ([facility]) (3 - Td or Tdap) 06/08/2029 06/09/2019, 01/01/2017 Zoster/Shingles Vaccine Seri es Screening: Adults aged 18+ yrs (or HM Modifiers)([facility]) (1 of 2) 2040 Pneumococcal Vaccination Screening: Pts 0-19 & 19-49 yrs of age ([facility]) Aged Out No longer eligible based on patient's age to complete this topic Medical Devices Not on file Insurance [facility] Care Teams Commercial Real Estate Associate Relationship Specialty Start Date End Date Pcp, Georgina PCP - General Family Medicine 04/19/20
== END 2024-12-31 09:31 | disposition home or self-care (01) ==
LOC: HO.HMCFM 08:51
PROVIDERS: PCP Nurse Practitioner Family; Visit Provider Nurse Practitioner Family
DX: R10.11 Right upper quadrant pain (principal); R10.13 Epigastric pain

== ENCOUNTER 2025-01-07 07:54 | Outpatient (REF) | payer OTHER, SELFPAY ==
--- NOTE | ~2025-01-07 | US_ITS ---
CLINICAL HISTORY: R10.11 - Right upper quadrant pain --- Additional Notes or Special Instructions: intermittent pain that migrates; worse after eating; ? gallbladder, stones? US abdomen complete Comparison: None provided Findings: The pancreas is normal. The visualized aorta and inferior vena cava are normal caliber. The liver is normal in size, right lobe length is 15.2 cm. Normal in echogenicity, no discrete lesion is visualized in the imaged liver. No intrahepatic bile duct dilatation. The common duct is 3 mm in diameter. The gallbladder is normal. Negative sonographic Chambers sign. The main portal vein is patent with antegrade flow. The right kidney is normal, 11.9 cm in length. The left kidney is normal, 10.9 cm in length. The spleen is normal, 11.5 cm in length. No free fluid in the abdomen. Impression: Normal exam. This document has been electronically signed by: Geraldine Bone MD on 01/07/2025 11:11:19
--- OUTSIDE RECORDS SUMMARY | 2025-01-07 08:00 | XMS_ITS | Clinical Summary ---
Author Organization [facility] Address [address] [place] [address] Care Team Providers Care Return To Vendor Name Role Phone Radha Babb INTERACTIVE ART DIRECTOR Primary Care Provider [phone] Allergies No known active allergies Medications * [...] Date of Phone Billing Address Personal/Family [address] [place] [address] BCBS FEE FOR SERVICE PPO Care Teams Return To Vendor Relationship Specialty Start Date End Date Radha Babb NP [address] [place] [address] PCP - General Family Medicine 01/13/15
--- OUTSIDE RECORDS SUMMARY | 2025-01-07 08:00 | XMS_ITS | Clinical Summary ---
Author Organization [facility] [employer] [facility] lin Address [address] [facility] [place] [address] Care Team Providers Care Community Service Officer Coordinator Name Role Phone Pcp, No Primary Care Provider [phone] Allergies No known active allergies Medications drospirenone, [...] Adults 18 yrs or above (or HM Modifier)([facility]) 2008 Hepatitis C Virus Infection in Adolescents and Adults: Screening (or Modifier) ([facility]) 2008 SDOH Screening Reminder: Annually for all adults ([facility]) 2008 Tobacco Smoking Cessation: i n Adults excluding Women: Behavioral and Pharmacotherapy Interventions ([facility]) 2008 Cervical Cancer Screenin-65 yrs of age (or Modifier) 07/07/2011 Cervical Cancer Screening: P ap every 3 yrs pts age 21-65 07/07/2011 Cervical Cancer: Pap Screeni ng with Modifier timing ([facility]) 07/07/2011 Cervical Cancer: hrHPV alone or with cotesting Pap for Pts 30-65yrs screening every 5yrs ([facility]) 07/07/2011 Flu Vaccination: Yearly for ages 18mos through 64 years (or Modifier)([facility]) 09/05/2024 COVID-19 Vaccine Screening: Initial Series and Booster Status ([facility]) ( - 2024- season) 2024 DTaP/Tdap/Td Vaccines ([facility]) (3 - Td or Tdap) 06/08/2029 06/09/2019, 01/01/2017 Zoster/Shingles Vaccine Seri es Screening: Adults aged 18+ yrs (or HM Modifiers)([facility]) (1 of 2) 2040 Pneumococcal Vaccination Screening: Pts 0-19 & 19-49 yrs of age ([facility]) Aged Out No longer eligible based on patient's age to complete this topic Medical Devices Not on file Insurance [facility] Care Teams Community Service Officer Coordinator Relationship Specialty Start Date End Date Pcp, Georgina PCP - General Family Medicine 04/19/20
== END 2025-01-07 07:55 | disposition home or self-care (01) ==
LOC: HO.US 07:54
PROVIDERS: Visit Provider Nurse Practitioner Family
DX: R10.11 Right upper quadrant pain (principal); R10.13 Epigastric pain; R10.12 Left upper quadrant pain
CPT/HCPCS: 76700

== ENCOUNTER → 2025-01-07 07:55 | Outpatient (BNV) | payer OTHER, SELFPAY | PROVIDERS: Visit Provider Radiology Diagnostic Radiology | DX: R10.11 Right upper quadrant pain (principal) | CPT/HCPCS: 76700 ==